=== PATIENT | female | born 1955 | race Caucasian/White ===

== ENCOUNTER → 2017-05-16 | Outpatient (CLI) | payer OTHER ==
[~2017-05-16] MED LIST: CHOL5000 PO; ESTR1TAB PO; GABA100C4 PO; HYDR25TA5 PO; LOSA100T PO; MAGN400T2 PO; MEDR2.5 PO; OMEGCAP PO; PANT20TA2 PO; PANT40TA3 PO; PIRO-1 PO; THERH PO
--- NOTE | 2017-05-16 14:27 | RADRPT ---
EXAM DATE/TIME: 05/16/2017 13:55 [place] COMPARISON: No previous studies available for comparison. INDICATIONS : Pre op for D&C on 06/11/17. Evaluate for pneumonia, pneumothorax, and other communicable diseases. MEDICAL HISTORY : No pertinent medical history. SURGICAL HISTORY : No pertinent surgical history. ENCOUNTER: Initial ACUITY: 1 day PAIN SCORE: 0/10 LOCATION: Bilateral chest FINDINGS: PA and lateral views of the chest demonstrate the lungs to be symmetrically aerated without evidence of mass, infiltrate or effusion. Granuloma right lung base The cardiomediastinal contours are unrema rkable. Degenerative changes thoracic spine CONCLUSION: No acute disease. Arnie Harris MD FACR on May 16, 2017 at 14:26 Board Certified Radiologist. This report was verified electronically.
--- NOTE | 2017-05-17 09:53 | EKG ---
Date Performed: 05/16/2017 Time Performed: 13:15:15 PTAGE: 61 years EKG: SINUS BRADYCARDIA BORDERLINE ECG NO PREVIOUS TRACING DOCTOR: German Gracia Interpretating Date/Time 05/17/2017 09:52:06
== END ==
LOC: CPRE 13:03
PROVIDERS: ATTEND Obstetrics & Gynecology
DX: Z01.811 Encounter for preprocedural respiratory examination (principal); Z01.810 Encounter for preprocedural cardiovascular examination; N95.0 Postmenopausal bleeding; R94.31 Abnormal electrocardiogram [ECG] [EKG]
CPT/HCPCS: 71046; 93005

== ENCOUNTER → 2017-06-11 | Day surgery (SDC) | payer OTHER ==
[~2017-06-11] VITALS: Ht 170.2 cm; Wt 103.0 kg
[~2017-06-11] MED LIST changes: +ACETAMINOPHEN 1000 MG/100 ML 100 ML IV ONE; +APREPITANT 40 MG CAP ONE; +CHLORHEXIDINE GLUCONATE 2 % 1 PACK (2 CLOTHS) TOPICAL PRN; +DEXAMETHASONE SOD PHOS 4 MG/ML VIAL IV ONE; +DIAZ5 PO; +DO NOT ADM ANY ANTICOAGULANT DRUGS PRN; +FAMOTIDINE 20 MG/2 ML VIAL ONE; +LACTATED RINGER'S 1000 ML IV PRN; +LIDOCAINE HCL 1% PF 5 ML SYRINGE OTHER ONE; +METOPROLOL TARTRATE 25 MG TAB PO PRN; +MIDAZOLAM HCL 2 MG/2 ML VIAL ONE; +NALOXONE HCL 0.4 MG/ML AMP ONE; +ONDANSETRON HCL 4 MG/2 ML VIAL IV PUSH PRN; +ONDANSETRON HCL 4 MG/2 ML VIAL ONE; +OXYTOCIN 10 UNIT/ML AMP ONE; -PANT20TA2 PO; +POVIDONE IODINE 5% (ANTISEPSIS KIT) 4 APPLICATIONS EACH NARE PRN; +PROPOFOL 200 MG/20 ML AMP IV ONE; +SODIUM CHLORID 0.9% 500 ML INJ 500 ML IV ONE; +SODIUM CHLORID 0.9% 500 ML IV PRN
[2017-06-11 17:32] VITALS: BP 116/52; PULSE 64; RESP 20; TEMP 98; O2SAT 100
--- NOTE | 2017-06-17 08:27 | MP ---
cc: Issa Wolf MD DATE OF OPERATION: 06/11/2017 PREOPERATIVE DIAGNOSIS: Postmenopausal bleeding. POSTOPERATIVE DIAGNOSIS: Postmenopausal bleeding, plus endometrial polyp. PROCEDURE PERFORMED: Examination under anesthesia, hysteroscopic exam, MyoSure removal of endometrial polyp and D and C. ANESTHESIA: General. SURGEON: Issa Wolf MD. FINDINGS: Examination under anesthesia, the vagina was clean and atrophic without lesions. The cervix was small without lesions. The uterus is normal size, shape and consistency and freely mobile. The adnexa was negative for masses. The hysteroscopic exam revealed a small anterior endometrial polyp and a small amount of fluff . The endometrial cavity was slightly small measuring 7.5 cm in length. COMPLICATIONS: None. COUNTS: Correct. ESTIMATED BLOOD LOSS: Minimal. DISPOSITION: The patient tolerated the procedure well and went to the recovery room in good condition. PROCEDURE IN DETAIL: The patient was taken to the operating room, identified by name band and verbally, given a general anesthetic and placed in dorsal lithotomy position, prepped and draped in the usual sterile fashion for vaginal surgery. The bladder was drained with an in and out catheter and the examination under anesthesia was carried out after a timeout was taken. The weighted speculum was placed in the vagina. The anterior lip of the cervix was grasped with a single-tooth tenaculum. The cervix was serially dilated without difficulty and the hysteroscope was inserted. The endometrial polyp was seen and a MyoSure device was called for. The MyoSure was then used to completely remove the polyp and to get good samples of all quadrants of the endometrium. At this point, the hysteroscope was removed and a D and C was carried out using a small sharp #1 curette. All tissue was sent for pathologic diagnosis and the instruments were removed. She was taken to the recovery room in good condition. Issa Wolf MD RJ[facility]IZ[facility]ETH , 08:10 AM , 08:26 AM
== END | disposition home or self-care (01) ==
LOC: HSDC 12:18
PROVIDERS: ATTEND Obstetrics & Gynecology
DX: N95.0 Postmenopausal bleeding (principal); N84.0 Polyp of corpus uteri
CPT/HCPCS: 00952; 58558; 88305; J0131; J2250; J2405; J3010; J7040; J7120; J8501; J1100; J2310; J2590